=== PATIENT | male | born 1970 | race African-American/Black ===

== ENCOUNTER 2018-02-18 22:14 | Inpatient (IN) ==
[2018-02-18] MEDS ORDERED: PANTOPRAZOLE 40 MG VIAL IV STA (22:45)
[2018-02-18] MEDS ORDERED: METOCLOPRAMIDE 10 MG/2 ML VIAL IV STA (22:45)
[2018-02-18] MEDS ORDERED: ONDANSETRON 4 MG/2 ML VIAL IV STA (22:45)
[2018-02-18] MEDS ORDERED: SODIUM CHLORIDE 0.9% 1,000 ML IV STA (22:45)
[2018-02-18 23:27] LABS: Basophils % 0.5 % (0.0-0.8); Eosinophils # 0.1 10*3/uL (0.0-0.87); Eosinophils % 2.4 % (0.00-10.9); Hematocrit 40.4 VOL% (42.0-52.0); Hemoglobin 13.9 GM/DL (14.0-18.0); Immature Granulocytes % 0.2 %; Immature Granulocytes Absolute 0.01 #; Lymphocytes # 1.2 10*3/uL (1.4-4.0); Lymphocytes % 29.8 % (21.2-54.2); Mean Corpuscular HGB Conc 34.4 GM/DL (32-36); Mean Corpuscular Hemoglobin 31 PG (27-34); Mean Corpuscular Volume 90.8 FL (87-102); Mean Platelet Volume 9.8 FL (9.6-12.0); Monocytes # 0.5 10*3/uL (0.11-0.8); Monocytes % 11.5 % (1.7-12.7); Neutrophils # 2.3 10*3/uL (1.4-7.4); Neutrophils % 55.6 % (38.7-73.9); Platelet Count 149 T/CUMM (130-400); Red Blood Count 4.45 MC/CUMM (3.8-5.5); Red Cell Distribution Width 13.7 % (9.3-17.3); White Blood Count 4.1 T/CUMM (4-12)
[2018-02-18 23:32] LABS: Apearance,Urine CLEAR (Clear); Bilirubin,Urine Negative (Negative); Blood, Urine Small mg/dL (Negative); Glucose,Urine (UA) Negative (Negative); Ketones,Urine Negative (Negative); Nitrite,Urine Negative (Negative); Protein,Urine Negative; Urine Color Colorless (Yellow); Urine Specific Gravity 1.002 (1.001-1.035); Urine Urobilinogen < 2.0 EU/DL (0.2-1.0)
[2018-02-18 23:52] LABS: Alanine Aminotransferase 57 U/L (16-61); Albumin 4.1 G/DL (3.4-5.0); Alkaline Phosphatase 135 U/L (45-117); Amylase 68 U/L (25-115); Aspartate Amino Transferase 106 U/L (0-37); Blood Urea Nitrogen 7 MG/DL (7-18); CKMB % 0.9 %; Calcium 9.3 MG/DL (8.5-10.1); Glucose 92 MG/DL (74-106); Osmolality,Calculated 270.8 MOS/KG (273-304); Potassium 3.5 MMOL/L (3.5-5.1); Sodium 137 MMOL/L (136-145); Total Protein 8.3 G/DL (6.4-8.3); Troponin I < 0.015 NG/ML (0.00-0.045)
[2018-02-19 00:02] LABS: Barbiturates Screen,Urine Negative (Negative); Benzodiazepines Screen,Urine Negative (Negative); Cannabinoid Screen,Urine Negative (Negative); Opiate Screen,Urine Negative (Negative); Phencyclidine Screen,Urine Negative (Negative)
[2018-02-19] MEDS ORDERED: SODIUM CHLORIDE 0.9% 1,000 ML IV STA (00:50)
[2018-02-19] MEDS ORDERED: ONDANSETRON 4 MG/2 ML VIAL IV STA (00:57)
[2018-02-19] MEDS ORDERED: fentaNYL 100 MCG/2 ML VIAL IV STA (00:57)
[2018-02-19] MEDS ORDERED: NICOTINE 21 MG/24 HR PATCH TRANSDERM PRN (01:02)
[2018-02-19] MEDS ORDERED: ACETAMINOPHEN 325 MG TABLET PO PRN (01:02)
[2018-02-19 03:18] LABS: Risk Ratio 1.7
[2018-02-19] MEDS: SODIUM CHLORIDE 0.9% 1,000 ML IV SCH (04:26)
[2018-02-19] MEDS: MORPHINE 4 MG/1 ML VIAL IV PRN ×2 (06:14→19:40)
[2018-02-19 06:40] LABS: Basophils % 0.9 % (0.0-0.8); Eosinophils # 0.1 10*3/uL (0.0-0.87); Eosinophils % 3.5 % (0.00-10.9); Hematocrit 37.5 VOL% (42.0-52.0); Hemoglobin 12.9 GM/DL (14.0-18.0); Immature Granulocytes % 0.3 %; Immature Granulocytes Absolute 0.01 #; Lymphocytes % 27.9 % (21.2-54.2); Mean Corpuscular HGB Conc 34.4 GM/DL (32-36); Mean Corpuscular Hemoglobin 31 PG (27-34); Mean Corpuscular Volume 90.8 FL (87-102); Monocytes # 0.6 10*3/uL (0.11-0.8); Monocytes % 17.3 % (1.7-12.7); Neutrophils # 1.7 10*3/uL (1.4-7.4); Neutrophils % 50.1 % (38.7-73.9); Platelet Count 148 T/CUMM (130-400); Red Blood Count 4.13 MC/CUMM (3.8-5.5); Red Cell Distribution Width 13.7 % (9.3-17.3); White Blood Count 3.4 T/CUMM (4-12)
[2018-02-19 07:03] LABS: Eosinophils 1 % (0-10); Hypochromasia 1+; Lymphocytes 31 % (20-55); Ovalocytes Slight; Platelet Estimate Adequate; Segmented Neutrophils 54 % (50-85); Total Cells Counted 100
[2018-02-19 07:06] LABS: Albumin 3.8 G/DL (3.4-5.0); Bilirubin,Total 0.7 MG/DL (0.2-1.0); Calcium 8.6 MG/DL (8.5-10.1); Total Protein 7.7 G/DL (6.4-8.3)
[2018-02-19 07:07] LABS: Osmolality,Calculated 265.1 MOS/KG (273-304); Potassium 3.7 MMOL/L (3.5-5.1)
[2018-02-19 08:22] LABS: CKMB % 0.9 %; Troponin I < 0.015 NG/ML (0.00-0.045)
[2018-02-19] MEDS: ENOXAPARIN 40 MG/0.4 ML SYRINGE SUBCUT SCH (09:06)
[2018-02-19] MEDS: PANTOPRAZOLE 40 MG TABLET PO SCH (09:06)
[2018-02-19] MEDS: FOLIC ACID 1 MG TABLET PO SCH (09:06)
[2018-02-19] MEDS: THIAMINE 100 MG TABLET PO SCH ×2 (09:06→22:00)
[2018-02-19] MEDS: ONDANSETRON 4 MG/2 ML VIAL IV PRN (19:42)
[2018-02-20 05:09] LABS: Basophils % 0.5 % (0.0-0.8); Eosinophils # 0.1 10*3/uL (0.0-0.87); Eosinophils % 3.2 % (0.00-10.9); Hematocrit 37.8 VOL% (42.0-52.0); Hemoglobin 12.5 GM/DL (14.0-18.0); Immature Granulocytes % 0.2 %; Immature Granulocytes Absolute 0.01 #; Lymphocytes # 0.9 10*3/uL (1.4-4.0); Lymphocytes % 22.1 % (21.2-54.2); Mean Corpuscular HGB Conc 33.1 GM/DL (32-36); Mean Corpuscular Hemoglobin 31 PG (27-34); Mean Corpuscular Volume 93.6 FL (87-102); Mean Platelet Volume 10.5 FL (9.6-12.0); Monocytes # 0.5 10*3/uL (0.11-0.8); Neutrophils # 2.5 10*3/uL (1.4-7.4); Platelet Count 138 T/CUMM (130-400); Red Blood Count 4.04 MC/CUMM (3.8-5.5); Red Cell Distribution Width 13.8 % (9.3-17.3); White Blood Count 4.1 T/CUMM (4-12)
[2018-02-20 05:55] LABS: Albumin 3.6 G/DL (3.4-5.0); Bilirubin,Total 1.2 MG/DL (0.2-1.0); Potassium 3.8 MMOL/L (3.5-5.1); Total Protein 7.5 G/DL (6.4-8.3)
[2018-02-20] MEDS: MORPHINE 4 MG/1 ML VIAL IV PRN ×4 (08:20→20:35)
[2018-02-20] MEDS: PANTOPRAZOLE 40 MG TABLET PO SCH (09:11)
[2018-02-20] MEDS: ENOXAPARIN 40 MG/0.4 ML SYRINGE SUBCUT SCH (09:11)
[2018-02-20] MEDS: FOLIC ACID 1 MG TABLET PO SCH (09:11)
[2018-02-20] MEDS: THIAMINE 100 MG TABLET PO SCH ×2 (09:11→20:27)
[2018-02-20] MEDS: SODIUM CHLORIDE 0.9% 1,000 ML IV SCH ×3 (12:55→20:34)
[2018-02-20] MEDS: ONDANSETRON 4 MG/2 ML VIAL IV PRN (20:35)
[2018-02-21] MEDS: SODIUM CHLORIDE 0.9% 1,000 ML IV SCH ×4 (04:45→22:27)
[2018-02-21 05:39] LABS: Basophils % 0.2 % (0.0-0.8); Eosinophils # 0.1 10*3/uL (0.0-0.87); Eosinophils % 2.9 % (0.00-10.9); Hematocrit 35.9 VOL% (42.0-52.0); Immature Granulocytes % 0.2 %; Immature Granulocytes Absolute 0.01 #; Lymphocytes # 1.1 10*3/uL (1.4-4.0); Mean Corpuscular HGB Conc 33.4 GM/DL (32-36); Mean Corpuscular Hemoglobin 31 PG (27-34); Mean Corpuscular Volume 92.1 FL (87-102); Mean Platelet Volume 10.2 FL (9.6-12.0); Monocytes # 0.6 10*3/uL (0.11-0.8); Monocytes % 13.4 % (1.7-12.7); Neutrophils # 2.7 10*3/uL (1.4-7.4); Neutrophils % 59.3 % (38.7-73.9); Platelet Count 125 T/CUMM (130-400); Red Cell Distribution Width 13.3 % (9.3-17.3); White Blood Count 4.6 T/CUMM (4-12)
[2018-02-21 05:58] LABS: Albumin 3.4 G/DL (3.4-5.0); Bilirubin,Total 0.7 MG/DL (0.2-1.0); Calcium 8.7 MG/DL (8.5-10.1); Potassium 3.4 MMOL/L (3.5-5.1); Total Protein 7.1 G/DL (6.4-8.3)
[2018-02-21] MEDS: FOLIC ACID 1 MG TABLET PO SCH (08:40)
[2018-02-21] MEDS: ENOXAPARIN 40 MG/0.4 ML SYRINGE SUBCUT SCH (08:40)
[2018-02-21] MEDS: THIAMINE 100 MG TABLET PO SCH ×2 (08:40→21:19)
[2018-02-21] MEDS: POTASSIUM CHLORIDE 20 MEQ TABLET PO SCH (08:40)
[2018-02-21] MEDS: PANTOPRAZOLE 40 MG TABLET PO SCH (08:40)
[2018-02-21] MEDS: MORPHINE 4 MG/1 ML VIAL IV PRN ×3 (13:38→22:27)
[2018-02-22] MEDS: SODIUM CHLORIDE 0.9% 1,000 ML IV SCH ×2 (06:28→15:09)
[2018-02-22] MEDS: FOLIC ACID 1 MG TABLET PO SCH (08:19)
[2018-02-22] MEDS: PANTOPRAZOLE 40 MG TABLET PO SCH (08:19)
[2018-02-22] MEDS: POTASSIUM CHLORIDE 20 MEQ TABLET PO SCH (08:19)
[2018-02-22] MEDS: THIAMINE 100 MG TABLET PO SCH ×2 (08:19→20:29)
[2018-02-22] MEDS: ENOXAPARIN 40 MG/0.4 ML SYRINGE SUBCUT SCH (08:19)
[2018-02-22] MEDS: MORPHINE 4 MG/1 ML VIAL IV PRN ×3 (11:38→20:36)
[2018-02-22] MEDS: ONDANSETRON 4 MG/2 ML VIAL IV PRN (20:39)
[2018-02-23] MEDS: SODIUM CHLORIDE 0.9% 1,000 ML IV SCH ×4 (01:00→18:02)
[2018-02-23] MEDS: THIAMINE 100 MG TABLET PO SCH ×2 (08:09→21:38)
[2018-02-23] MEDS: FOLIC ACID 1 MG TABLET PO SCH (08:09)
[2018-02-23] MEDS: POTASSIUM CHLORIDE 20 MEQ TABLET PO SCH (08:09)
[2018-02-23] MEDS: PANTOPRAZOLE 40 MG TABLET PO SCH (08:09)
[2018-02-23] MEDS: ENOXAPARIN 40 MG/0.4 ML SYRINGE SUBCUT SCH (08:09)
[2018-02-23] MEDS: MORPHINE 4 MG/1 ML VIAL IV PRN ×4 (08:49→22:59)
[2018-02-24] MEDS: SODIUM CHLORIDE 0.9% 1,000 ML IV SCH ×3 (02:10→18:12)
[2018-02-24] MEDS: PANTOPRAZOLE 40 MG TABLET PO SCH (08:50)
[2018-02-24] MEDS: MORPHINE 4 MG/1 ML VIAL IV PRN ×3 (08:50→20:31)
[2018-02-24] MEDS: FOLIC ACID 1 MG TABLET PO SCH (08:50)
[2018-02-24] MEDS: ENOXAPARIN 40 MG/0.4 ML SYRINGE SUBCUT SCH (08:50)
[2018-02-24] MEDS: POTASSIUM CHLORIDE 20 MEQ TABLET PO SCH (08:50)
[2018-02-24] MEDS: THIAMINE 100 MG TABLET PO SCH ×2 (08:50→20:31)
[2018-02-25] MEDS: SODIUM CHLORIDE 0.9% 1,000 ML IV SCH ×3 (04:56→13:13)
[2018-02-25 06:27] LABS: Calcium 9.2 MG/DL (8.5-10.1); Osmolality,Calculated 277.4 MOS/KG (273-304); Potassium 3.5 MMOL/L (3.5-5.1)
[2018-02-25] MEDS: POTASSIUM CHLORIDE 20 MEQ TABLET PO SCH (08:58)
[2018-02-25] MEDS: THIAMINE 100 MG TABLET PO SCH (08:58)
[2018-02-25] MEDS: PANTOPRAZOLE 40 MG TABLET PO SCH (08:58)
[2018-02-25] MEDS: FOLIC ACID 1 MG TABLET PO SCH (08:58)
[2018-02-25] MEDS: ENOXAPARIN 40 MG/0.4 ML SYRINGE SUBCUT SCH (08:58)
[2018-02-25] MEDS ORDERED: LISINOPRIL 10 MG TABLET PO SCH (12:00)
[2018-02-25 12:39] VITALS: BP 132/84
== END 2018-02-25 16:02 | disposition home or self-care (01) | DRG 440 ==
LOC: N.ED 22:14 → N.EDINP 02-19 01:02 → SUATTDRO 02-19 01:02 → N.5E 02-19 03:04
PROVIDERS: ATTEND Hospitalist

== ENCOUNTER 2020-09-20 14:03 | Inpatient (IN) ==
[2020-09-20 16:41] LABS: Bacteria,Urine Occasional /HPF (Few); Bilirubin,Urine Negative (Negative); Blood, Urine Small mg/dL (Negative); Glucose,Urine (UA) >=500 mg/dL (Negative); Hyaline Casts,Urine 4 /LPF (0-3); Ketones,Urine Negative (Negative); Mucus,Urine Many /LPF (Occasional); Nitrite,Urine Negative (Negative); Protein,Urine 30 MG/DL; RBC,Urine 4 /HPF (0-4); Urine Appearance CLEAR (Clear); Urine Color Yellow (Yellow); Urine Urobilinogen < 2.0 EU/DL (0.2-1.0); WBC,Urine 4 /HPF (0-6)
[2020-09-20 16:49] LABS: Barbiturates Screen,Urine Negative (Negative); Benzodiazepines Screen,Urine Negative (Negative); Cannabinoid Screen,Urine Positive (Negative); Opiate Screen,Urine Positive (Negative); Phencyclidine Screen,Urine Negative (Negative)
[2020-09-20] MEDS ORDERED: MORPHINE 4 MG/1 ML VIAL IV STA (17:11)
[2020-09-20] MEDS ORDERED: ONDANSETRON 4 MG/2 ML VIAL IV STA (17:12)
[2020-09-20 17:31] LABS: Basophils % 0.4 % (0.0-0.8); Eosinophils % 0.8 % (0.00-10.9); Hematocrit 47.1 VOL% (42.0-52.0); Hemoglobin 15.7 GM/DL (14.0-18.0); Immature Granulocytes % 0.4 %; Immature Granulocytes Absolute 0.02 #; Lymphocytes # 1.2 10*3/uL (1.4-4.0); Lymphocytes % 21.7 % (21.2-54.2); Mean Corpuscular HGB Conc 33.3 GM/DL (32-36); Mean Corpuscular Volume 92.5 FL (87-102); Mean Platelet Volume 9.8 FL (9.6-12.0); Monocytes % 13.4 % (1.7-12.7); Neutrophils % 63.3 % (38.7-73.9); Platelet Count 207 T/CUMM (130-400); Red Blood Count 5.09 MC/CUMM (3.8-5.5); Red Cell Distribution Width 13.4 % (9.3-17.3); White Blood Count 5.3 T/CUMM (4-12)
[2020-09-20 17:51] LABS: Albumin 4.7 G/DL (3.4-5.0); Bilirubin,Total 0.6 MG/DL (0.2-1.0); Calcium 10.4 MG/DL (8.5-10.1); Osmolality,Calculated 264.7 MOS/KG (273-304); Potassium 3.6 MMOL/L (3.5-5.1); Total Protein 10.1 G/DL (6.4-8.2)
[2020-09-20] MEDS ORDERED: DEXTROSE 50% 25 GM/50 ML VIAL IV PRN (18:32)
[2020-09-20] MEDS ORDERED: ONDANSETRON 4 MG/2 ML VIAL IV PRN (18:32)
[2020-09-20] MEDS ORDERED: LORazepam 2 MG/1 ML VIAL IV PRN (18:32)
[2020-09-20] MEDS ORDERED: GLUCAGON 1 MG VIAL IM PRN (18:32)
[2020-09-20] MEDS ORDERED: MAGNESIUM SULF RIDER 2 GM in PREMIX 1 EACH IV PRN (18:39)
[2020-09-20] MEDS ORDERED: MAGNESIUM SULF RIDER 4 GM in PREMIX 1 EACH IV PRN (18:39)
[2020-09-20] MEDS ORDERED: ZALEPLON 5 MG CAPSULE PO PRN (19:46)
[2020-09-20] MEDS ORDERED: hydrALAZINE 20 MG/1 ML VIAL IV ONE ×2 (19:54)
[2020-09-20] MEDS: SODIUM CHLORIDE 0.9% 1,000 ML IV SCH (20:02)
[2020-09-20] MEDS: ENOXAPARIN 40 MG/0.4 ML SYRINGE SUBCUT SCH (20:38)
[2020-09-21] MEDS: SODIUM CHLORIDE 0.9% 1,000 ML IV SCH ×3 (05:31→23:04)
[2020-09-21 05:32] LABS: Basophils % 0.4 % (0.0-0.8); Eosinophils # 0.1 10*3/uL (0.0-0.87); Hematocrit 41.1 VOL% (42.0-52.0); Immature Granulocytes % 0.4 %; Immature Granulocytes Absolute 0.02 #; Lymphocytes # 0.9 10*3/uL (1.4-4.0); Lymphocytes % 19.6 % (21.2-54.2); Mean Corpuscular HGB Conc 34.1 GM/DL (32-36); Mean Corpuscular Volume 90.9 FL (87-102); Mean Platelet Volume 9.7 FL (9.6-12.0); Monocytes % 15.2 % (1.7-12.7); Neutrophils % 63.4 % (38.7-73.9); Platelet Count 201 T/CUMM (130-400); Red Blood Count 4.52 MC/CUMM (3.8-5.5); Red Cell Distribution Width 13.5 % (9.3-17.3); White Blood Count 4.8 T/CUMM (4-12)
[2020-09-21 05:53] LABS: Albumin 3.6 G/DL (3.4-5.0); Calcium 9.5 MG/DL (8.5-10.1); Osmolality,Calculated 265.5 MOS/KG (273-304); Potassium 3.6 MMOL/L (3.5-5.1); Total Protein 7.9 G/DL (6.4-8.2)
[2020-09-21 06:54] LABS: Total Protein (Chem) 7.9 G/DL (6.4-8.3)
[2020-09-21] MEDS: MORPHINE 4 MG/1 ML VIAL IV PRN ×4 (08:04→23:01)
[2020-09-21] MEDS: MULTIVITAMIN (CENTRUM) TABLET PO SCH (08:05)
[2020-09-21] MEDS: PANTOPRAZOLE 40 MG TABLET PO SCH (08:05)
[2020-09-21] MEDS: FOLIC ACID 1 MG TABLET PO SCH (08:05)
[2020-09-21] MEDS: THIAMINE 100 MG TABLET PO SCH (08:05)
[2020-09-21 08:08] LABS: Albumin (SPE) 4.9 G/DL (3.2-5.3); Albumin (SPE) Rel % 62.6 %; Alpha 1 (SPE) 0.2 G/DL (0.1-0.4); Alpha 1 (SPE) Rel % 2.3 %; Alpha 2 (SPE) 0.8 G/DL (0.4-1.0); Beta (SPE) 0.9 G/DL (0.5-1.1); Beta (SPE) Rel % 11.3 %; Gamma (SPE) 1.1 G/DL (0.7-1.7); Gamma (SPE) Rel % 13.8 %
[2020-09-21] MEDS: lisinopriL 10 MG TABLET PO SCH (11:33)
[2020-09-21 12:28] LABS: Troponin I < 0.015 NG/ML (0.00-0.045)
[2020-09-21] MEDS: ENOXAPARIN 40 MG/0.4 ML SYRINGE SUBCUT SCH (20:57)
[2020-09-22 06:14] LABS: Albumin 2.9 G/DL (3.4-5.0); Bilirubin,Total 0.9 MG/DL (0.2-1.0); Calcium 8.7 MG/DL (8.5-10.1); Potassium 3.7 MMOL/L (3.5-5.1); Total Protein 6.5 G/DL (6.4-8.2)
[2020-09-22 06:17] LABS: Basophils % 0.6 % (0.0-0.8); Eosinophils # 0.1 10*3/uL (0.0-0.87); Eosinophils % 2.8 % (0.00-10.9); Hematocrit 35.4 VOL% (42.0-52.0); Immature Granulocytes % 0.3 %; Immature Granulocytes Absolute 0.01 #; Lymphocytes # 1.4 10*3/uL (1.4-4.0); Lymphocytes % 38.3 % (21.2-54.2); Mean Corpuscular HGB Conc 33.6 GM/DL (32-36); Mean Corpuscular Volume 93.2 FL (87-102); Mean Platelet Volume 9.7 FL (9.6-12.0); Monocytes % 14.4 % (1.7-12.7); Neutrophils % 43.6 % (38.7-73.9); Platelet Count 198 T/CUMM (130-400); Red Cell Distribution Width 13.7 % (9.3-17.3); White Blood Count 3.6 T/CUMM (4-12)
[2020-09-22 06:19] LABS: Hemoglobin 11.9 GM/DL (14.0-18.0)
[2020-09-22] MEDS: PANTOPRAZOLE 40 MG TABLET PO SCH (09:36)
[2020-09-22] MEDS: FOLIC ACID 1 MG TABLET PO SCH (09:36)
[2020-09-22] MEDS: THIAMINE 100 MG TABLET PO SCH (09:36)
[2020-09-22] MEDS: lisinopriL 10 MG TABLET PO SCH (09:36)
[2020-09-22] MEDS: MULTIVITAMIN (CENTRUM) TABLET PO SCH (09:36)
[2020-09-22] MEDS: SODIUM CHLORIDE 0.9% 1,000 ML IV SCH (09:37)
[2020-09-22 11:25] VITALS: BP 141/97
[2020-09-22 12:50] LABS: Risk Ratio 2.93; VLDL CHOLESTEROL 16.4 MG/DL
== END 2020-09-22 17:05 | disposition home or self-care (01) | DRG 439 ==
LOC: N.ED 14:03 → N.EDINP 18:32 → N.4E 19:25
PROVIDERS: ADMIT Internal Medicine; ATTEND Internal Medicine